=== PATIENT | female | born 1960 | race Caucasian/White ===

== ENCOUNTER → 2019-06-16 | Outpatient (CLI) | payer BC ==
[~2019-06-16] VITALS: Ht 157.5 cm; Wt 65.9 kg
[~2019-06-16] MED LIST: LIDOCAINE 1% INJ 20 ML 20 ML VIAL INJ ONE
--- NOTE | 2019-06-16 11:11 | Diagnostic Imaging Report ---
INDICATION: Right breast calcifications. PROCEDURE: The patient presents for stereotactic biopsy. DESCRIPTION OF PROCEDURE: The patient was brought to the stereotactic suite and placed in the chair in the sitting upright position. The right breast was positioned mediolateral. The cluster of micro-calcifications in the inferior aspect of the right breast were stereotactically targeted. The medial right breast was then prepped and draped in the usual sterile fashion. A small amount of 1% lidocaine was utilized for local anesthesia. An 8-gauge needle was advanced into the right breast and placed with its tip per stereotactic coordinates. A total of 4 core biopsies utilizing vacuum-assisted device was performed. Specimen radiograph demonstrates numerous calcifications within samples #1, 2 and 4. Marker clip was then deployed. Needle was removed and hemostasis was obtained using manual compression. Postprocedure mammogram demonstrates a marker clip in the inferior and central aspects of the left breast. Previously noted calcifications appear to be largely removed. IMPRESSION: Successful stereotactic biopsy of the cluster of microcalcifications in the inferior aspect of the right breast. Pathology results are currently pending. Dictated by: Dictated on workstation # [id number]
== END ==
LOC: RAD 08:20
PROVIDERS: ATTEND Physician Assistant
DX: N63.10 Unspecified lump in the right breast, unspecified quadrant (principal); R92.0 Mammographic microcalcification found on diagnostic imaging of breast
CPT/HCPCS: 19081